=== PATIENT | female | born 1955 | race Caucasian/White ===

== ENCOUNTER 2016-08-02 12:29 | Observation (INO) | payer OTHER ==
[~2016-08-02] VITALS: Ht 160 cm; Wt 49.1 kg
--- NOTE | ~2016-08-02 | HP ---
PATIENT'S NAME: LAURE OHI Nichelle [facility] AGE: 60 Y [address] ROOM: [place] [address] LOCATION: [facility] [place] ADMIT DATE: 08/02/2016 History & Physical DISCHARGE DATE: FAMILY PHYSICIAN: Abhilash Carter MD ATTENDING PHYSICIAN: FRANCISCO J DURAN DATE OF SERVICE: CHIEF COMPLAINT: Abdominal pain and bright red blood per rectum. HISTORY OF PRESENT ILLNESS: The patient is a 60-year-old female with no past medical history. She developed lower abdominal cramps followed by nausea, followed by diarrhea, with bright red blood per rectum in the course of last 24 hours. Her symptoms persisted and she came to the ER. In the ER, the patient had an unremarkable laboratory workout, but her CAT scan demonstrated severe left-sided colitis in the long segment. The patient denies any recent weight loss, weight gain, sick contacts, or any other disturbances to her baseline well-being. REVIEW OF SYSTEMS: All 10 systems have been reviewed and are negative aside from pertinent positives as mentioned above. PAST MEDICAL HISTORY: The patient denies. She did have a screening colonoscopy several years back and which was apparently unremarkable. SOCIAL HISTORY: The patient denies any history of ongoing toxic habits. FAMILY HISTORY: The patient denies any GI history in her parents or siblings. CURRENT MEDICATIONS: 1. Loratadine. 2. Aspirin. PHYSICAL EXAMINATION: VITAL SIGNS: Blood pressure 109/63, heart rate 65, temp is 99.0, respirations 16, and satting 96% on room air. GENERAL: Well-developed, well-nourished, middle-aged female of younger age than stated in no acute distress. PATIENT'S NAME: MICAELA OH [facility] AGE: 60 Y [address] ROOM: [place] [id number] LOCATION: [facility] [place] ADMIT DATE: 08/02/2016 History & Physical DISCHARGE DATE: FAMILY PHYSICIAN: Abhilash Carter MD ATTENDING PHYSICIAN: FRANCISCO J DURAN EYES: Exam shows pupils are equal and reactive to light. LYMPHATIC: Exam shows no cervical lymphadenopathy. ENDOCRINE: Exam shows no thyromegaly. LUNGS: Clear to auscultation. HEART: Rate is regular. No appreciable murmurs, gallops, or rubs. ABDOMEN: Soft, slightly tender in the left lower quadrant. Normoactive bowel sounds. VASCULAR: A 2+ pedal pulses. MUSCULOSKELETAL: Exam is unremarkable. SKIN: Warm and dry. PSYCHIATRIC: Exam shows very slightly anxious mood, but preserved cognition and affect. LABORATORY DATA: Review of the studies are significant for lactate of 2.2, but aside from that, normal electrolytes and an unremarkable CBC as well as negative procalcitonin. ASSESSMENT AND PLAN: This is a 60-year-old female who will be admitted with hematochezia due to left-sided colitis. We will hydrate the patient aggressively. We will provide her with intravenous Cipro and Flagyl. We will request a GI evaluation in the morning. Hematochezia. We will recheck her CBC in the morning though at this point she does not seem to have any significant bleeding. Additional management will depend on clinical course. Time dedicated to this patient encounter is 25 minutes. MD OLENA WELDON/maria antonia /[id number] D: T: 352 HISTORY & PHYSICAL
--- NOTE | ~2016-08-02 | DS ---
PATIENT'S NAME: MICAELA OH [facility] AGE: 60 Y [address] ROOM: [address] [place] [id number] LOCATION: [facility] [place] ADMIT DATE: 08/02/2016 Discharge Summary DISCHARGE DATE: 08/05/2016 FAMILY PHYSICIAN: Abhilash Carter MD ATTENDING PHYSICIAN: Randall Casanova V ATTENDING PHYSICIAN: Kenneth Wilson MD FINAL DIAGNOSES: 1. Left-sided colitis, severe ischemic colitis. 2. Bloody bowel movements secondary to left-sided colitis. CONSULTATIONS: GI, Dr. Vincent. PROCEDURES: Flexible sigmoidoscopy by Dr. Vincent. REASON FOR ADMISSION: This is a 60-year-old female, who presented with abdominal pain and bright red bleeding per rectum. The patient was evaluated in the ER and then further admitted to [facility]. Please see Dr. Casanova' admission H and P for further details. DIAGNOSTIC STUDIES: Lactate was 2.2 on admission, subsequently was 0.7. Serial CBCs were done. White count on admission was 13.4, at the time of discharge after treatment with antibiotics was 7.4 and normal. Hemoglobin and hematocrit levels were within normal range, hemoglobin 13.2 on admission and 10.1 at discharge. Platelet count was within normal range. Serial BMP showed normal electrolytes. Kidney function test was normal. Liver function tests were normal. ESR 6. The patient had a lipid panel done, that showed a total cholesterol 133, triglycerides 53, HDL 75, LDL 48. PT 11.2, INR 1.07, PTT 32, CRP 7.09, procalcitonin level less than 0.05. Chest x-ray was done during this admission and showed no vascular congestion or acute infiltrate. Mild spine scoliosis was noted. CT abdomen and pelvis with contrast was done on admission and showed severe left-sided colitis of the long segment, could be infectious, inflammatory, or ischemic. C. diff test was negative. O and P screen negative. Stool culture was negative and showed normal abbey. Shiga toxin negative. Fecal wbc's were noted. Occult blood was positive. HOSPITAL COURSE: The patient was admitted for evaluation and management of abdominal pain and bright red bleeding per rectum. CT abdomen was done, and the patient was found to have left-sided colitis. Her hemoglobin was maintained, and she did not require any blood transfusion during this admission. She was monitored very closely. She was hydrated with IV fluids. She was given a clear liquid diet. She was placed on ciprofloxacin and PATIENT'S NAME: MICAELA OH [facility] AGE: 60 Y [address] ROOM: [address] [address] LOCATION: [facility] [place] ADMIT DATE: 08/02/2016 Discharge Summary DISCHARGE DATE: 08/05/2016 FAMILY PHYSICIAN: Abhilash Carter MD ATTENDING PHYSICIAN: Randall Casanova, that were continued throughout the course of this hospitalization. GI was consulted. The patient underwent a flexible sigmoidoscopy, and that showed that the patient had severe left-sided colitis. Further workup was done. The patient had a normal lipid panel. Her EKG showed sinus bradycardia with no acute ST changes. She then continued to do well. She was tolerating p.o. Her sinus bradycardia resolved. She was ambulating in the hallway. Her blood in the stools had resolved as well. The patient continued to do well, and she was discharged and asked to follow up with her primary care physician. DISCHARGE INSTRUCTIONS: The patient discharged on a regular diet. She was asked to go slow on her diet and advance as tolerated. Activities as tolerated. Follow up with Dr. Abhilash Carter in 2-3 days' time. PCP to check a CBC and a BMP. Follow up at [facility] p[facility].n. in 1 to 2 weeks. GI to follow up with biopsy results. Follow up at ER if fever or blood in stool or increased abdominal pain. Dr. Vincent later followed up with the patient and stated that no further GI followup is needed for the patient. DISCHARGE MEDICATIONS: 1. Tylenol 650 mg p.o. q.6 hours p.r.n. pain. 2. Ultram 50 mg p.o. q.6 hours p.r.n. moderate pain. 3. Claritin 10 mg p.o. daily p.r.n. allergy. 4. Ciprofloxacin 500 mg p.o. b.i.d. for 7 days. 5. Flagyl 500 mg p.o. t.i.d. for 7 days. This patient was managed by hospitalist and GI teams during this admission. KENNETH WILSON MD MT/nelsonl /[id number] CC: Abhilash Carter MD d: 08/06/16 0402 t: 08/06/16 1327, DISCHARGE SUMMARY
--- NOTE | ~2016-08-02 | ER ---
PATIENT'S NAME: MICAELA OH [facility] AGE: 60 Y [address] ROOM: [place] [address] [place]: [facility] [place]MIT DATE: 08/02/2016 ER/Outpatient Report DISCHARGE DATE: FAMILY PHYSICIAN: Abhilash Carter MD ATTENDING PHYSICIAN: FRANCISCO J DURAN Time of Arrival: 1229 hours. Time of Evaluation: 1305 hours. CHIEF COMPLAINT: Abdominal pain, nausea, vomiting, and diarrhea. HISTORY OF PRESENT ILLNESS: This 60-year-old female presents to the ER. She states she woke up at 3 o'clock this morning, not feeling well. She states she is having some abdominal pain with cramp and started having nausea, vomiting, and diarrhea. She states her first couple of diarrhea bowel movements were stool colored and then they turned into blood with clots. She states that she does not know for sure if she has been running any fevers at home, but has had chills today. She did take some Imodium earlier today. She states that she had a similar episode of this 7 years ago when they were in [place], and she drank some bad water there. She denies any other problems at this time. ALLERGIES: NO KNOWN ALLERGIES. MEDICATIONS: Please see medication list in nurse's notes. PAST MEDICAL HISTORY: Negative. SOCIAL HISTORY: She drinks alcoholic beverage at night. Denies any smoking use. REVIEW OF SYSTEMS: A 10-point review of system was completed and was negative with the exception of those discussed in the HPI. PHYSICAL EXAMINATION: VITAL SIGNS: Height 5 feet 3 inches stated. Weight 49.2 kg taken, blood pressure is 119/59, pulse 56, respirations 18, temperature 97.8 degrees tympanically, saturations 98% on room air. Madhav Coma Score is 15. GENERAL: Alert, calm, thin female, in mild distress. HEENT. Head: Normocephalic. She does display moist mucous membranes. Eyes: PATIENT'S NAME: MICAELA OH [facility] AGE: 60 Y [address] ROOM: [address] [address] LOC[place]: [facility] [place]MIT DATE: 08/02/2016 ER/Outpatient Report DISCHARGE DATE: FAMILY PHYSICIAN: Abhilash Carter MD ATTENDING PHYSICIAN: FRANCISCO J DURAN Pupils are equal and reactive to light. NECK: Supple. No lymphadenopathy. LUNGS: Clear to auscultation bilaterally. No wheezes or crackles. Normal respiratory effort. HEART: Regular rate and rhythm. No lifts, thrills, or murmurs. ABDOMEN: Soft. She does have some tenderness with palpation in her left lower quadrant. No guarding, no rebound tenderness. She has good bowel sounds throughout. EXTREMITIES: No clubbing or cyanosis. She does have full range of motion of all limbs. LABORATORY DATA AND X-RAY: CBC: White count is 13.4, hemoglobin is 13.2, platelets 241, ANC is 11.5. CMS is unremarkable. Lactate is 2.2 Procalcitonin is less than 0.05. Fecal white blood cells, many white blood cells noted, occult blood was positive. Ova and parasite screen, Giardia and Cryptosporidium are both negative. C. difficile is negative. Shigella is pending. CT scan was done and was reported that she has a very thick colon wall in the descending and sigmoid colon, infectious versus inflammatory colitis. He says that there is also a possibility for ischemia. IMPRESSION: Colitis, infectious versus inflammatory versus ischemia. ASSESSMENT AND PLAN: We did start an IV here in the emergency room. We did give her 4 mg of Zofran, 2 mg of morphine, and some IV fluids. The patient did rest comfortably her entire stay. Her abdomen remained stable and still had no guarding or rebound tenderness. I did speak with Dr. Vincent regarding the patient, and he would like the patient to stay and get IV antibiotics and scope. The patient states her primary care physician was Dr. Abhilash Carter, but she is currently trying to find a new physician; therefore, I called the Hospitalist Service, and they will admit her. I did write orders for Cipro 400 mg IV and Flagyl 500 mg IV, and we started IV fluids run at 100 mL/h. The patient understands and agrees with care. CHERY KAY PA-C FOR MD JUDAH SANDOVAL/maria antonia /[id number] d: 08/03/16 0019 t: 08/08/16 1029, OUTPATIENT REPORT
--- NOTE | ~2016-08-02 | CON ---
PATIENT'S NAME: MICAELA OH [facility] AGE: 60 Y [address] ROOM: [place] [address] [place] [facility] [place] [facility] [place]: 08/02/2016 Consultation DISCHARGE DATE: FAMILY PHYSICIAN: Abhilash Carter MD ATTENDING PHYSICIAN: GREG TODD V DATE OF CONSULTATION: 08/03/2016 REFERRING PHYSICIAN: Vishla King MD REASON FOR CONSULTATION: Abdominal pain, likely colitis. HISTORY OF PRESENT ILLNESS: This is a very pleasant, 60-year-old female with no significant past medical history. She states that she developed lower abdominal cramping that was followed by nausea. This then was followed by diarrhea with bright red blood per rectum, she does state at that time, it did fill the stools. Her symptoms continued to persist over the past 24 hours and came to the emergency room. In the emergency room, her laboratory workup was unremarkable. Her CT scan did demonstrate severe left-sided colitis in long segment. The patient was seen and examined. She states that her pain is significantly better. She currently is on Cipro and Flagyl IV. The patient denies any current nausea or vomiting. She has been afebrile without any chills. The patient does recall having a colonoscopy approximately in [address] Jamison, that she states was "normal." She has never had other previous episode to this matter as she does recall a number of years ago snorkeling in [place] that she believes that she contracted some type of GI parasite and was evaluated at that time, though the blood had retreated without any complaints. The patient denies any current chest pain, chest pressure, shortness of breath, fever, chills, night sweats, or weight loss. PAST MEDICAL HISTORY: The patient denies any medical history. SURGICAL HISTORY: She had a colonoscopy in 2010 that she states was normal. SOCIAL HISTORY: The patient is . She denies any tobacco, alcohol, or recreational drug use. FAMILY HISTORY: She denies any GI cancers or diseases that we know of. PATIENT'S NAME: MICAELA OH [facility] AGE: 60 Y [address] ROOM: [place] [address] [place] [facility] [place] [facility] [place]: 08/02/2016 Consultation DISCHARGE DATE: FAMILY PHYSICIAN: Abhilash Carter MD ATTENDING PHYSICIAN: GREG TODD V ALLERGIES: NO MEDICATION ALLERGIES. CURRENT MEDICATIONS: Please refer to the medication administration record. REVIEW OF SYSTEMS: A 10-point review of systems was completed. All were negative except for those identified in the history of present illness. PHYSICAL EXAMINATION: GENERAL: A very pleasant, 60-year-old female who appears to be in no acute distress. VITAL SIGNS: Temperature 98.9, pulse of 61, respirations of 14, blood pressure 97/53, and oxygen saturation is 96% on room air. SKIN: [place], warm, dry. No jaundice. HEENT: Head is normocephalic and atraumatic. Pupils are equal, round, and reactive to light. Sclerae are clear. Nonicteric. Oral mucosa is pink and moist. No thyromegaly. NECK: Soft and supple. CARDIOVASCULAR: Regular. Normal S1, S2. RESPIRATORY: Respirations even and unlabored. LUNGS: Clear to auscultation. ABDOMEN: Soft, round, mildly tender in the left lower quadrant. No rebound, rigidity, or guarding noted. Bowel sounds positive x4 quadrants. MUSCULOSKELETAL: No muscle weakness or atrophy. EXTREMITIES: No clubbing, cyanosis, or edema. NEUROLOGIC: Grossly nonfocal. LABS AND DIAGNOSTICS: White blood cell count of 11.8; hemoglobin 11.0, down from 13.2 on admission; hematocrit of 33.9; MCV of 101.5; and platelets of 196. Chemistry panel includes glucose of 126, BUN of 11, creatinine 0.7, sodium 139, potassium 3.8, chloride of 108, and CO2 of 26. Liver enzymes on admission were within normal limits showing an AST of 28, ALT of 21, alkaline phosphatase of 53, and total bilirubin 0.7. ESR is 6. CRP is 7.09. Procalcitonin on admission was less than 0.05. CT scan of the patient's abdomen and pelvis did show severe left- sided colitis, descending and proximal sigmoid colon showing thick edematous wall with luminal effacement and haziness in the adjacent mesentery, this does extend from the splenic flexure to the midsigmoid. Multiple small liver cysts. Her other solid organs are negative. ASSESSMENT AND PLAN: Again, this is a very pleasant, 60-year-old female who was admitted with lower abdominal pain and cramping. She subsequently underwent a CT abdomen and PATIENT'S NAME: MICAELA OH [facility] AGE: 60 Y [address] ROOM: [address] [place] [id number] [place] [facility] [place]: 08/02/2016 Consultation DISCHARGE DATE: FAMILY PHYSICIAN: Abhilash Carter MD ATTENDING PHYSICIAN: GREG TODD V pelvis showing left-sided colitis. This likely is ischemic in nature. She has been placed on ciprofloxacin as well as Flagyl IV which should be continued. It is recommended for the patient to undergo a colonoscopy in preparation for evaluation of etiology of her colitis. This was discussed in depth with the patient as well as the patient's . We will discuss this with our hospitalist team for further recommendations. The patient likely will undergo a colonoscopy in preparation for the procedure. Thank you for this consult and allowing us to participate in the care of this patient. We will continue to monitor, evaluate, and treat as appropriate. SCHUYLER TERRAZAS APRN FOR JUSTIN BEAN MD MMF/modl /[id number] d: 08/03/161954 t: 08/07/16 1606, CONSULTATION REPORT
[2016-08-02 13:44] LABS: BASOPHIL % 0.1 %; EOSINOPHIL % 0.1 %; HEMATOCRIT 39.8 % (33.0-46.0); HEMOGLOBIN 13.2 g/dL (10.0-15.0); IMMATURE GRANULOCYTE # 0.1 K/uL (0.0-0.3); IMMATURE GRANULOCYTE % 0.4 %; LYMPHOCYTE # 0.7 K/uL (0.8-4.0); LYMPHOCYTE % 5.1 %; MCH 33.3 pg (27.0-34.0); MCHC 33.2 gm/dL (32.0-36.5); MCV 100.5 fl (83.0-98.0); MONOCYTE # 1.1 K/uL (0.0-1.0); MONOCYTE % 7.9 %; MPV 10.4 fl (9.4-12.4); NEUTROPHIL # (ANC) 11.5 K/uL (1.8-7.8); NEUTROPHIL % 86.4 %; NRBC % 0 /100WBC (0-0.00); PLATELET COUNT 241 K/uL (150-450); RBC 3.96 M/uL (3.50-5.50); RDW-CV 12.5 % (11.9-14.6); WBC 13.4 K/uL (4.0-11.0)
[2016-08-02 14:06] LABS: ALBUMIN 4.6 gm/dL (3.5-5.0); ALK PHOS 53 IU/L (33-138); ALT 21 IU/L (12-78); ANION GAP 12.9 (10.0-19.0); AST 28 IU/L (10-40); BLOOD UREA NITROGEN 24 mg/dL (6-24); CALCIUM 9.3 mg/dL (8.5-10.5); CHLORIDE 104 mMol/L (96-110); CO2 28 mMol/L (22-32); CREATININE 0.7 mg/dL (0.5-1.1); ESTIMATED GFR (MDRD EQUATION) > 60; POTASSIUM 3.9 mMol/L (3.7-5.1); SODIUM 141 mMol/L (135-145); TOTAL BILIRUBIN 0.7 mg/dL (0.0-1.5); TOTAL PROTEIN 7.8 g/dL (6.0-8.4)
[2016-08-02] MEDS ORDERED: CLARITIN10 MG PO (18:50)
[2016-08-02] MEDS ORDERED: TYLENOL325 MG PO (18:50)
[2016-08-03 05:34] LABS: BASOPHIL % 0.3 %; EOSINOPHIL % 0.3 %; HEMATOCRIT 33.9 % (33.0-46.0); IMMATURE GRANULOCYTE # 0.1 K/uL (0.0-0.3); IMMATURE GRANULOCYTE % 0.4 %; LYMPHOCYTE # 1.1 K/uL (0.8-4.0); LYMPHOCYTE % 9.6 %; MCH 32.9 pg (27.0-34.0); MCHC 32.4 gm/dL (32.0-36.5); MCV 101.5 fl (83.0-98.0); MONOCYTE # 1.2 K/uL (0.0-1.0); MONOCYTE % 10.3 %; MPV 10.4 fl (9.4-12.4); NEUTROPHIL # (ANC) 9.4 K/uL (1.8-7.8); NEUTROPHIL % 79.1 %; NRBC % 0 /100WBC (0-0.00); PLATELET COUNT 196 K/uL (150-450); RBC 3.34 M/uL (3.50-5.50); RDW-CV 13.1 % (11.9-14.6); WBC 11.8 K/uL (4.0-11.0)
[2016-08-03 05:52] LABS: ANION GAP 8.8 (10.0-19.0); BLOOD UREA NITROGEN 11 mg/dL (6-24); CALCIUM 8.2 mg/dL (8.5-10.5); CHLORIDE 108 mMol/L (96-110); CO2 26 mMol/L (22-32); CREATININE 0.7 mg/dL (0.5-1.1); ESTIMATED GFR (MDRD EQUATION) > 60; POTASSIUM 3.8 mMol/L (3.7-5.1); SODIUM 139 mMol/L (135-145)
[2016-08-03 19:53] LABS: HEMATOCRIT 32.6 % (33.0-46.0); HEMOGLOBIN 10.7 g/dL (10.0-15.0)
[2016-08-03 20:03] LABS: INR - (THERAPEUTIC) 1.07 (0.92-1.07); PROTIME 11.2 SECONDS (9.8-11.4)
[2016-08-04 03:20] LABS: BASOPHIL % 0.2 %; EOSINOPHIL # 0.1 K/uL (0.0-0.5); EOSINOPHIL % 0.5 %; HEMATOCRIT 36.2 % (33.0-46.0); HEMOGLOBIN 11.7 g/dL (10.0-15.0); IMMATURE GRANULOCYTE # 0.1 K/uL (0.0-0.3); IMMATURE GRANULOCYTE % 1.1 %; LYMPHOCYTE % 7.5 %; MCH 33.2 pg (27.0-34.0); MCHC 32.3 gm/dL (32.0-36.5); MCV 102.8 fl (83.0-98.0); MONOCYTE # 1.4 K/uL (0.0-1.0); MONOCYTE % 10.8 %; MPV 10.2 fl (9.4-12.4); NEUTROPHIL # (ANC) 10.2 K/uL (1.8-7.8); NEUTROPHIL % 79.9 %; NRBC % 0 /100WBC (0-0.00); PLATELET COUNT 187 K/uL (150-450); RBC 3.52 M/uL (3.50-5.50); RDW-CV 12.9 % (11.9-14.6); WBC 12.8 K/uL (4.0-11.0)
[2016-08-04 03:34] LABS: ANION GAP 8.6 (10.0-19.0); BLOOD UREA NITROGEN 4 mg/dL (6-24); CALCIUM 8.7 mg/dL (8.5-10.5); CHLORIDE 107 mMol/L (96-110); CO2 29 mMol/L (22-32); CREATININE 0.6 mg/dL (0.5-1.1); ESTIMATED GFR (MDRD EQUATION) > 60; POTASSIUM 3.6 mMol/L (3.7-5.1); SODIUM 141 mMol/L (135-145)
[2016-08-05 05:58] LABS: BASOPHIL % 0.5 %; EOSINOPHIL # 0.2 K/uL (0.0-0.5); HEMATOCRIT 31.1 % (33.0-46.0); HEMOGLOBIN 10.1 g/dL (10.0-15.0); IMMATURE GRANULOCYTE % 0.4 %; LYMPHOCYTE # 1.3 K/uL (0.8-4.0); MCH 33.8 pg (27.0-34.0); MCHC 32.5 gm/dL (32.0-36.5); MONOCYTE # 0.6 K/uL (0.0-1.0); MONOCYTE % 8.2 %; MPV 10.1 fl (9.4-12.4); NEUTROPHIL # (ANC) 5.3 K/uL (1.8-7.8); NEUTROPHIL % 71.9 %; NRBC % 0 /100WBC (0-0.00); PLATELET COUNT 159 K/uL (150-450); RBC 2.99 M/uL (3.50-5.50); RDW-CV 12.8 % (11.9-14.6); WBC 7.4 K/uL (4.0-11.0)
[2016-08-05 06:15] LABS: ALBUMIN 2.6 gm/dL (3.5-5.0); ALK PHOS 32 IU/L (33-138); ALT 13 IU/L (12-78); ANION GAP 8.5 (10.0-19.0); AST 20 IU/L (10-40); BLOOD UREA NITROGEN 4 mg/dL (6-24); CALCIUM 7.8 mg/dL (8.5-10.5); CHLORIDE 112 mMol/L (96-110); CO2 27 mMol/L (22-32); CREATININE 0.6 mg/dL (0.5-1.1); ESTIMATED GFR (MDRD EQUATION) > 60; POTASSIUM 3.5 mMol/L (3.7-5.1); SODIUM 144 mMol/L (135-145); TOTAL BILIRUBIN 0.4 mg/dL (0.0-1.5); TOTAL PROTEIN 5.3 g/dL (6.0-8.4)
[2016-08-05] MEDS ORDERED: ULTRAM50 MG PO (10:11)
[2016-08-05] MEDS ORDERED: CIPRO500 MG PO (10:12)
[2016-08-05] MEDS ORDERED: FLAGYL500 MG PO (10:13)
== END 2016-08-05 11:25 | disposition disaster alternative care site (69) ==
LOC: GMED 12:29 → GMSU 17:28
PROVIDERS: Family Medicine; Physician Assistant Medical; ADMIT Internal Medicine
PROC: 0DBN8ZX Excision of Sigmoid Colon, Via Natural or Artificial Opening Endoscopic, Diagnostic (ICD-10-PCS; principal; 2016-08-04)
DX: K63.3 Ulcer of intestine (principal); K55.8 Other vascular disorders of intestine; Z79.899 Other long term (current) drug therapy
CPT/HCPCS: G0378; J0744; J2270; J2405; J7030; J7050; Q9967